=== PATIENT | female | born 1975 | race Hispanic/Latino ===

== ENCOUNTER 2020-01-06 06:57 | Day surgery (SDC) | payer OTHER ==
[~2020-01-06 06:57] MED LIST: AMOXICILLIN500 MG PO; BACTRIM DS1 TAB PO; BYETTA10 MCG/0.0 SC; DYNACIN100 MG PO; FAMOTIDINE20 M1 PO; JARDIANCE10 MG PO; LISINOPRIL20 MG PO; LOVASTATIN10 M1 PO; METRONIDAZOL500 MG PO; NAPROXEN250 MG PO; NOVOLOG MIX SC; PRILOSEC40 MG PO
[2020-01-06] MEDS ORDERED: PERCOCET 5/325M1 TAB PO (09:52)
[2020-01-06 13:28] VITALS: BP 112/57
--- NOTE | 2020-01-15 12:58 | NUR ---
Patient cancelled follow up appointment, stated she felt better, and had a family member test positive for covid19. She would rather stay home until they were all cleared off quarantine. Patient will reschedule if needed at her discretion. No other concerns voiced at this time.
== END 2020-01-06 12:28 | disposition home or self-care (01) ==
LOC: ORM 06:57
PROVIDERS: ATTEND Surgery
DX: K80.10 Calculus of gallbladder with chronic cholecystitis without obstruction (principal); E11.9 Type 2 diabetes mellitus without complications; I10 Essential (primary) hypertension; Z79.4 Long term (current) use of insulin; Z11.59 Encounter for screening for other viral diseases
CPT/HCPCS: J0131; J1100; J2710